=== PATIENT | female | born 1960 | race Caucasian/White ===

== ENCOUNTER → 2019-04-10 | Outpatient (CLI) | payer MEDICAID ==
[~2019-04-10] MED LIST: CEPH-368; CITA20TA9 PO; CLON1TAB; HYDR100C2; OXYC15TA60
== END | disposition home or self-care (01) ==
LOC: CVU 10:46
PROVIDERS: ATTEND Surgery
DX: I65.21 Occlusion and stenosis of right carotid artery (principal)
CPT/HCPCS: 93880